=== PATIENT | female | born 2000 | race Caucasian/White ===

== ENCOUNTER → 2020-04-13 | Outpatient (CLI) | payer OTHER | LOC: COL.RAD 01:15 | DX: O99.89 Other specified diseases and conditions complicating pregnancy, childbirth and the puerperium (principal); R10.31 Right lower quadrant pain; R10.2 Pelvic and perineal pain; Z3A.00 Weeks of gestation of pregnancy not specified ==

== ENCOUNTER 2021-02-10 00:50 | Emergency (ER) | payer OTHER ==
[~2021-02-10] VITALS: Ht 170.2 cm; Wt 79.5 kg
[2021-02-10 00:56] VITALS: TEMP 97.3
[2021-02-10 01:34] LABS: AMORPHOUS CRYSTAL Present /uL; MUCOUS Present /lpf; PH 5 (5-8); SQUAMOUS EPITHELIAL 0-2 /hpf; URINE APPEARANCE Clear; URINE BACTERIA None Seen /hpf; URINE BILIRUBIN Negative (NEGATIVE); URINE BLOOD Negative (NEGATIVE); URINE COLOR Red; URINE GLUCOSE 1+ (NEGATIVE); URINE KETONE Negative (NEGATIVE); URINE LEUKOCYTE ESTERASE Negative (NEGATIVE); URINE NITRATE Positive (NEGATIVE); URINE PROTEIN(semi-quant) 2+ (NEGATIVE); URINE RBC None Seen /hpf; URINE UROBILINOGEN >=4.0 mg/dL (NEGATIVE)
[2021-02-10 01:37] LABS: COLLECTION METHOD CLEAN CATCH
[2021-02-10] MEDS ORDERED: MACROBID 1100 MG/CAP PO (01:38)
[2021-02-10] MEDS ORDERED: PYRIDIUM 100MG100 MG PO (01:38)
[2021-02-10 01:48] VITALS: BP 126/74; PULSE 68
== END 2021-02-10 01:48 | disposition home or self-care (01) ==
LOC: COL.ER 00:50
PROVIDERS: Emergency Medicine
DX: N39.0 Urinary tract infection, site not specified (principal); Z32.02 Encounter for pregnancy test, result negative